=== PATIENT | female | born 1985 | race Caucasian/White ===

== ENCOUNTER 2017-02-24 01:13 | Emergency (ER) | payer MEDICAID ==
[2017-02-24 01:27] VITALS: BP 122/79; PULSE 92; RESP 20; TEMP 98.3; O2SAT 99
--- NOTE | 2017-02-24 01:58 | C.PDOC ---
History Of Present Illness Pt eloped prior medical evaluation Time Seen by Provider: 02/24/17 01:20 Chief Complaint (Nursing): Abnormal Skin Integrity Past Medical History Reviewed: Historical Data, Nursing Documentation, Vital Signs Vital Signs: Last Vital Signs Temp 98.3 F 02/24/17 01:21 Pulse 92 H 02/24/17 01:21 Resp 20 02/24/17 01:21 BP 122/79 02/24/17 01:21 Pulse Ox 99 02/24/17 01:21 - Medical History PMH: Anemia, Hypothyroidism - [facility] Procedures REMOV INTRALUM VAG FB (07/25/14) Family History: States: Unknown Family Hx - Social History Hx Tobacco Use: Yes Hx Alcohol Use: Yes Hx Substance Use: No - Immunization History Hx Tetanus Toxoid Vaccination: No Hx Influenza Vaccination: No Hx Pneumococcal Vaccination: No ED Course And Treatment O2 Sat by Pulse Oximetry: 99 Disposition - Disposition Disposition: ELOPEMENT - ER ONLY Disposition Time: 01:57 Condition: STABLE Forms: [facility] (Icelandic) - Clinical Impression Clinical Impression: Rash of neck
== END 2017-02-24 01:57 | disposition left against medical advice (07) ==
LOC: C.ER 01:13
DX: R21 Rash and other nonspecific skin eruption (principal); Z02.9 Encounter for administrative examinations, unspecified

== ENCOUNTER 2017-10-22 22:54 | Emergency (ER) | payer MEDICAID ==
[2017-10-22 23:16] VITALS: BP 126/79; PULSE 91; RESP 16; TEMP 98.2; O2SAT 100
--- NOTE | 2017-10-22 23:40 | C.PDOC ---
History Of Present Illness 31 year old female presents to the ER with a complaint of right upper eyelid swelling that began today. Denies eye discharge or change in vision. Denies headache. Patient reports she has also had intermittent ringing in the left ear for the past 2 months. Denies ear discharge or pain. No change in hearing. Time Seen by Provider: 10/22/17 23:16 Chief Complaint (Nursing): ENT Problem History Per: Patient History/Exam Limitations: no limitations Onset/Duration Of Symptoms: Days Current Symptoms Are (Timing): Still Present Recent travel outside of the [place]: No Past Medical History Reviewed: Historical Data, Nursing Documentation, Vital Signs Vital Signs: Last Vital Signs Temp 98.2 F 10/22/17 23:09 Pulse 91 H 10/22/17 23:09 Resp 16 10/22/17 23:09 BP 126/79 10/22/17 23:09 Pulse Ox 100 10/23/17 01:17 - Medical History PMH: Anemia, Hypothyroidism - [facility] Procedures REMOV INTRALUM VAG FB (07/25/14) Family History: States: Unknown Family Hx - Social History Hx Tobacco Use: Yes Hx Alcohol Use: No Hx Substance Use: No - Immunization History Hx Tetanus Toxoid Vaccination: No Hx Influenza Vaccination: No Hx Pneumococcal Vaccination: No Review Of Systems Constitutional: Negative for: Fever, Chills Eyes: Negative for: Vision Change, Other (Eye discharge) ENT: Positive for: Other (Left ear ringing). Negative for: Ear Pain, Ear Discharge Physical Exam - Physical Exam Appears: Non-toxic Skin: Normal Color, Warm, Dry Head: Atraumatic, Normacephalic Eye(s): bilateral: PERRL, EOMI, right: Other (Mild swelling, tenderness, and erythema to upper eyelid with pointing at the lid margin), left: Normal Inspection Ear(s): Bilateral: Normal (No tragal tenderness, no mastoid tenderness.) Nose: Normal Oral Mucosa: Moist Throat: Normal, No Erythema, No Exudate Neck: Normal, Supple Chest: Symmetrical Cardiovascular: Rhythm Regular Respiratory: Normal Breath Sounds Neurological/Psych: Oriented x3, Normal Speech, Normal Cognition, Normal Cranial Nerves (no focal deficits) ED Course And Treatment O2 Sat by Pulse Oximetry: 100 (Room air) Pulse Ox Interpretation: Normal Progress Note: Patient is resting comfortably in the ER in no acute distress, vitals are stable, will discharge home with instructions to apply warm compress to eye and advised to follow up with ENT and PMD for further evaluation. Disposition - Disposition Referrals: Kyler Desir MD [Staff Provider] - Disposition: HOME/ ROUTINE Disposition Time: 23:37 Condition: STABLE Additional Instructions: Apply warm compresses. Follow up with an ENT and your primary in 1-2 days Return to ER if symptoms persist or worsen. Prescriptions: Clindamycin [Cleocin] 300 mg PO Q6 #28 cap Tobramycin 0.3% [Tobrex] 0.5 in OP TID #1 tube Instructions: Stye (Hordeolum) Forms: [facility] (Pashto) - Clinical Impression Clinical Impression: Hordeolum externum, Ringing in ear - PA / GAS ENGINE OPERATOR / Resident Statement MD/DO has reviewed & agrees with the documentation as recorded. - Scribe Statement The provider has reviewed the documentation as recorded by the Scribe Mando Crenshaw All medical record entries made by the Scribe were at my direction and personally dictated by me. I have reviewed the chart and agree that the record accurately reflects my personal performance of the history, physical exam, medical decision making, and the department course for this patient. I have also personally directed, reviewed, and agree with the discharge instructions and disposition.
== END 2017-10-22 23:51 | disposition home or self-care (01) ==
LOC: C.ER 22:54
DX: H00.011 Hordeolum externum right upper eyelid (principal); H93.12 Tinnitus, left ear